=== PATIENT | male | born 1955 | race Hispanic/Latino ===

== ENCOUNTER 2018-08-06 12:16 | Inpatient (IN) | payer MEDICARE ==
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
[2018-08-06 15:38] LABS: VENOUS BLOOD GAS BASE EXCESS 0.8 mmol/L (0.0-2.0); VENOUS BLOOD GAS PO2 26 mm/Hg (30-55); VENOUS BLOOD PH 7.25 (7.32-7.43)
[2018-08-06 15:43] LABS: BASO # 0.02 K/mm3 (0.0-2.0); BASO % 0.2 % (0.0-3.0); EOS # 0.1 (0.0-0.7); EOS % 1.2 % (1.5-5.0); GRAN # 6.82 (1.4-6.5); GRAN % 69.6 % (50.0-68.0); HEMOGLOBIN 9.5 g/dL (14.0-18.0); LYMPH # 2.5 (1.2-3.4); LYMPH % 25.5 % (22.0-35.0); MEAN CELL VOLUME 100.3 fl (80.0-105.0); MEAN CORPUSCULAR HGB CONC 32.9 g/dl (31.0-37.0); MEAN PLATELET VOLUME 9.6 fl (7.0-11.0); MONO # 0.3 (0.1-0.6); MONO % 3.5 % (1.0-6.0); RBC 2.88 10^6/uL (3.5-6.1); RED CELL DISTRIBUTION WIDTH 16.9 % (11.5-14.5); WHITE BLOOD COUNT 9.8 10^3/ul (4.5-11.0)
[2018-08-06 15:48] LABS: INR 1.14
[2018-08-06 15:51] LABS: ALB/GLOB RATIO 0.6 (1.1-1.8); ALT/SGPT 9 U/L (7-56); AST/SGOT 43 U/L (17-59); BLOOD UREA NITROGEN 15 mg/dL (7-21); CALCIUM 8.5 mg/dL (8.4-10.5); GFR NON-AFRICAN AMERICAN > 60
[2018-08-06 15:59] LABS: URINE BILIRUBIN NEGATIVE (NEGATIVE); URINE BLOOD TRACE-INTACT (NEGATIVE); URINE GLUCOSE (UA) 100 mg/dL (NEGATIVE); URINE LEUKOCYTE ESTERASE NEGATIVE Leu/uL (NEGATIVE); URINE PROTEIN >=300 mg/dL (<30 mg/dL); URINE UROBILINOGEN 0.2 E.U./dL (<1 E.U./dL)
[2018-08-06 16:01] LABS: URINE APPEARANCE SL CLOUDY (CLEAR); URINE COLOR YELLOW (YELLOW)
[2018-08-06 16:20] LABS: URINE BACTERIA MOD (NEG); URINE COARSE GRANULAR CAST TRACE /hpf (0-2)
[2018-08-06 16:27] LABS: BARBITURATES, UR NEGATIVE (NEGATIVE); BENZODIAZEPINES, UR NEGATIVE (NEGATIVE); OPIATES, UR POSITIVE (NEGATIVE); PHENCYCLIDINE, UR NEGATIVE (NEGATIVE)
[2018-08-06] MEDS ORDERED: cefTRIAXone 1 gm 1 GM/100 ML BAG IVPB STA (16:59)
[2018-08-06] MEDS ORDERED: Sodium Chloride 0.9% 1,000 ML IV SCH (17:00)
[2018-08-06 17:16] VITALS: RESP 18
[2018-08-06 17:23] VITALS: O2SAT 97
--- NOTE | 2018-08-06 18:56 | RAD ---
Date of service: 08/06/2018 HISTORY: MEDICAL CLEARANCE COMPARISON: No prior. TECHNIQUE: Chest PA and lateral FINDINGS: LUNGS: Left upper lobe infiltrate. Underlying pulmonary vascular congestion, increased interstitial markings. PLEURA: No significant pleural effusion identified. No pneumothorax apparent. CARDIOVASCULAR: Normal. OSSEOUS STRUCTURES: No significant abnormalities. VISUALIZED UPPER ABDOMEN: Normal. OTHER FINDINGS: None. IMPRESSION: Right upper lobe infiltrate. Underlying pulmonary vascular congestion/ interstitial lung disease.
--- NOTE | 2018-08-06 18:57 | RAD ---
Date of service: 08/06/2018 PROCEDURE: Radiographs of the left tibia and fibula. HISTORY: ? Osteomyelitis in recently amputated BKA COMPARISON: None available. TECHNIQUE: Frontal and lateral views obtained. FINDINGS: BONES: No abnormalities at the surgical site status post BKA. JOINT SPACES: Unremarkable. OTHER FINDINGS: Soft tissue swelling without gas/ air within visible soft tissues. IMPRESSION: No evidence of osteomyelitis. No air identified within soft tissues at the surgical site.
[2018-08-06] MEDS ORDERED: Sodium Chloride 0.45% 1,000 ML IV SCH (21:45)
[2018-08-06] MEDS ORDERED: Oxycodone/Acetaminophen 5/325 mg Tab PO STA (22:18)
--- NOTE | 2018-08-06 22:29 | CP.PCM.PN ---
<DarleneAlyec - Last Filed: 08/06/18 22:37> Subjective - Date & Time of Evaluation Date of Evaluation: 08/06/18 Time of Evaluation: 22:20 - Subjective Subjective: PGY-[address] Carrasco CC: Pt wants AMA Pt seen and examined. He was sitting by the bedside with b/l LE stumps dangling off the bed and he was holding onto the rail for balance. RN tried to redirect him to safety and lay back in bed but pt was not redirectable. He was admitted for disruptive behavior, possibly harmful to self and staff at his assisted living place, pending crisis eval. Pt told me that he wanted to go home because the assisted living place "conned" him to be at the hospital. I explained to him the reason why he was here. but pt insisted that he wanted to go. Pt also mentioned about back pain requested pain meds GEN: NAD, agitated at times, argumentative at times, able to redirect. Occasionally shouted for help or attention and sit up by the bed Card: regular S1 S2 Pulm: CTA b/l Back: scar of spinal implant. pain at L SI joint LE: stumps healed well A/P: Possible Unsafe to self or others pending crisis eval Lower back pain - 1:1 for safety and behavioral - percocet 5 x 1 - Due to possible danger to self or others, pt cannot leave AMA Objective - Vital Signs/Intake and Output Vital Signs (last 24 hours): Temp Pulse Resp BP Pulse Ox 97.9 F 88 18 157/62 H 97 08/06/18 17:23 08/06/18 17:23 08/06/18 17:23 08/06/18 17:23 08/06/18 17:23 - Medications Medications: Current Medications Acetaminophen (Tylenol 325mg Tab) 650 mg PO Q6H PRN PRN Reason: Fever >100.4 F Aspirin (Ecotrin) 81 mg PO 0800 YAIMA Atorvastatin Calcium (Lipitor) 10 mg PO DAILY YAIMA Sodium Chloride (Sodium Chloride 0.45%) 1,000 mls @ 60 mls/hr IV .[id number] YAIMA Ceftriaxone Sodium (Rocephin 1 Gram Ivpb) 1 gm in 100 mls @ 100 mls/hr IVPB DAILY YAIMA PRN Reason: Protocol Pantoprazole Sodium (Protonix Ec Tab) 40 mg PO 0600 [facility] - Labs Labs: PT 13.0 SECONDS (9.4-12.5) H 08/06/18 15:37 INR 1.14 08/06/18 15:37 <Sherice Carrasco - Last Filed: 08/07/18 06:44> Objective - Vital Signs/Intake and Output Vital Signs (last 24 hours): Temp Pulse Resp BP Pulse Ox 98 F 86 18 136/70 97 08/06/18 22:06 08/06/18 22:06 08/06/18 22:06 08/06/18 22:06 08/06/18 17:23 - Medications Medications: Current Medications Acetaminophen (Tylenol 325mg Tab) 650 mg PO Q6H PRN PRN Reason: Fever >100.4 F Aspirin (Ecotrin) 81 mg PO 0800 [facility] Atorvastatin Calcium (Lipitor) 10 mg PO DAILY [facility] Sodium Chloride (Sodium Chloride 0.45%) 1,000 mls @ 60 mls/hr IV .[id number] [facility] Last Admin: 08/06/18 23:32 Dose: 60 mls/hr Ceftriaxone Sodium (Rocephin 1 Gram Ivpb) 1 gm in 100 mls @ 100 mls/hr IVPB DAILY YAIMA PRN Reason: Protocol Pantoprazole Sodium (Protonix Ec Tab) 40 mg PO 0600 [facility] Last Admin: 08/07/18 06:15 Dose: 40 mg - Labs Labs: PT 13.0 SECONDS (9.4-12.5) H 08/06/18 15:37 INR 1.14 08/06/18 15:37 Attending/Attestation - Attestation I have personally seen and examined this patient.: No I have fully participated in the care of the patient.: No I have reviewed all pertinent clinical information, including history, physical exam and plan: Yes
[2018-08-07] MEDS ORDERED: Oxycodone/Acetaminophen 5/325 mg Tab PO ONE (05:55)
[2018-08-07] MEDS ORDERED: Pantoprazole 40 mg EC Tab PO SCH (06:00)
[2018-08-07 07:14] LABS: BASO # 0.03 K/mm3 (0.0-2.0); BASO % 0.3 % (0.0-3.0); EOS # 0.1 (0.0-0.7); GRAN # 6.93 (1.4-6.5); HEMOGLOBIN 9.8 g/dL (14.0-18.0); LYMPH # 1.9 (1.2-3.4); LYMPH % 20.7 % (22.0-35.0); MEAN CELL VOLUME 97.7 fl (80.0-105.0); MEAN CORPUSCULAR HEMOGLOBIN 32.8 pg (25.0-35.0); MEAN CORPUSCULAR HGB CONC 33.6 g/dl (31.0-37.0); MEAN PLATELET VOLUME 9.7 fl (7.0-11.0); MONO # 0.4 (0.1-0.6); RBC 2.99 10^6/uL (3.5-6.1); RED CELL DISTRIBUTION WIDTH 16.7 % (11.5-14.5); WHITE BLOOD COUNT 9.4 10^3/ul (4.5-11.0)
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
[2018-08-07 07:54] LABS: ALB/GLOB RATIO 0.6 (1.1-1.8); ALT/SGPT 8 U/L (7-56); AST/SGOT 38 U/L (17-59); BLOOD UREA NITROGEN 12 mg/dL (7-21); CALCIUM 8.5 mg/dL (8.4-10.5); GFR NON-AFRICAN AMERICAN > 60
--- NOTE | 2018-08-07 08:24 | CT ---
Date of service: 08/06/2018 PROCEDURE: CT HEAD WITHOUT CONTRAST. HISTORY: Altered Mental Status COMPARISON: None available. TECHNIQUE: Axial computed tomography images were obtained through the head/brain without intravenous contrast. Radiation dose: Total exam DLP = 606.17 mGy-cm. This CT exam was performed using one or more of the following dose reduction techniques: Automated exposure control, adjustment of the mA and/or kV according to patient size, and/or use of iterative reconstruction technique. FINDINGS: HEMORRHAGE: Grossly technically limited examination. No intracranial hemorrhage identified. BRAIN: No definite intracranial mass. Wedge-shaped area of diminished attenuation in the right frontal lobe involving both joshi and white matter, possibly subacute or old infarct. Correlate with magnetic resonance imaging. VENTRICLES: Unremarkable. No hydrocephalus. CALVARIUM: Unremarkable. PARANASAL SINUSES: Unremarkable as visualized. No significant inflammatory changes. MASTOID AIR CELLS: Unremarkable as visualized. No inflammatory changes. OTHER FINDINGS: None. IMPRESSION: Limited examination. Wedge-shaped area of hyperdensity in the right frontal lobe. Possible subacute or old infarct. Correlate with magnetic resonance imaging. No additional abnormality. The preliminary findings for this examination were reported by [facility] at 7:29 p.m. on 08/06/2018. There is concurrence of this report with the preliminary findings.
[2018-08-07] MEDS ORDERED: cefTRIAXone 1 gm 1 GM/100 ML BAG IVPB SCH (10:00)
[2018-08-07] MEDS ORDERED: Albuterol-Ipratrop 3 mg / 0.5 (3 ml) UD IH PRN (10:06)
[2018-08-07] MEDS: guaiFENesin DM 100 mg-10 mg/5 ml UD PO PRN ×2 (10:15→16:11)
[2018-08-07] MEDS ORDERED: Azithromycin 500MG/NS 250ml 500 MG/250 ML BAG IVPB SCH (12:00)
[2018-08-07 15:01] VITALS: BP 159/68; PULSE 85; TEMP 97.7
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
--- NOTE | 2018-08-07 16:15 | CARD ---
APPROVED REPORT Date of service: 08/06/2018 EKG Measurement Heart [id number] <Conclusion> Normal sinus rhythm Right bundle branch block Anterolateral infarct, age undetermined Abnormal ECG
--- NOTE | 2018-08-07 22:27 | DS ---
HISTORY OF PRESENT ILLNESS: The patient is a 63-year-old who was brought in because of altered mental status. Workup showed right upper lobe pneumonia. He was started on IV antibiotic, nebulizer treatment. The patient admits being depressed, but not suicidal. He was evaluated by a psychiatrist. He was offered psych admission, but he refused. Screening was done by [facility]voluntary Unit from [facility], but according to their evaluation, the patient is fully awake and alert. He is able to make decision. He does not want to go to Psych Unit, so he is being discharged today back to [facility] and he will be resuming his medication and I will start him on Levaquin 500 daily that he will be taking for one week and he will be followed by his PMD. Emanuel Castellanos MD
--- NOTE | 2018-08-08 13:57 | CP.PCM.PCO ---
Physician Communication Note - Physician Communication Note Physician Communication Note: pt was screened by [facility] [place] found to be not commitable, pt was d/c
== END 2018-08-07 22:44 | disposition home or self-care (01) | DRG 194 ==
LOC: ED 12:16 → EDBD 17:17 → ERH 17:17 → 5RSO 20:46
PROVIDERS: ADMIT Internal Medicine; ATTEND Internal Medicine
PROC: 3E0F7GC Introduction of Other Therapeutic Substance into Respiratory Tract, Via Natural or Artificial Opening (ICD-10-PCS; principal; 2018-08-07)
DX: J18.9 Pneumonia, unspecified organism (principal); N39.0 Urinary tract infection, site not specified; E87.2 Acidosis; F32.9 Major depressive disorder, single episode, unspecified; I10 Essential (primary) hypertension; E11.9 Type 2 diabetes mellitus without complications; E78.5 Hyperlipidemia, unspecified; Z79.84 Long term (current) use of oral hypoglycemic drugs; Z91.19 Patient's noncompliance with other medical treatment and regimen; Z89.611 Acquired absence of right leg above knee; Z89.512 Acquired absence of left leg below knee